=== PATIENT | female | born 1980 | race African-American/Black ===

== ENCOUNTER 2022-08-25 13:14 | Emergency (ER) | payer BC ==
[~2022-08-25] VITALS: Ht 170.2 cm; Wt 78.9 kg
[2022-08-25 14:01] VITALS: BP_SYST 120
[2022-08-25] MEDS ORDERED: SODIUM CL 3% FOR INHALATION 15 ML VIAL.NEB INH ONE (16:45)
[2022-08-25] MEDS ORDERED: ACETAMINOPHEN 650 MG/20.3 ML UDC PO ONE (16:45)
[2022-08-25] MEDS ORDERED: TYLL650 PO (17:11)
[2022-08-25] MEDS ORDERED: GUAI100S14 PO (17:11)
[2022-08-25 17:41] VITALS: BP_SYST 120
== END 2022-08-25 17:41 | disposition home or self-care (01) ==
LOC: SED 13:14
DX: J02.9 Acute pharyngitis, unspecified (principal); I10 Essential (primary) hypertension; Z91.041 Radiographic dye allergy status; Z88.8 Allergy status to other drugs, medicaments and biological substances; Z79.899 Other long term (current) drug therapy
CPT/HCPCS: 99283; 94640; 94760; J7131

== ENCOUNTER 2022-08-29 11:09 | Emergency (ER) | payer BC ==
[~2022-08-29] VITALS: Ht 170.2 cm; Wt 78.9 kg
[~2022-08-29 11:09] MED LIST: GUAI100S14 PO; TYLL650 PO
[2022-08-29 11:46] VITALS: BP_SYST 128
[2022-08-29 12:32] LABS: CALCIUM 8.8 mg/dL (8.4-11.0); CREATININE 0.83 mg/dL (0.55-1.30)
[2022-08-29 12:33] LABS: BASOPHILS % (AUTO) 0.4 % (0.0-2.0); EOSINOPHILS # (AUTO) 0.1 K/uL (0.0-0.4); EOSINOPHILS % (AUTO) 1.6 % (0.0-4.0); HEMATOCRIT 33.8 % (36-48); HEMOGLOBIN 11.1 g/dL (12.0-16.0); LYMPHOCYTES # (AUTO) 1.3 K/uL (1.0-5.5); LYMPHOCYTES % (AUTO) 33.7 % (20.5-51.5); MEAN CORPUSCULAR HEMOGLOBIN 26 pg (27-31); MEAN CORPUSCULAR HGB CONC 33 % (32-36); MEAN CORPUSCULAR VOLUME 79 fL (79.0-98.0); MONOCYTES # (AUTO) 0.3 K/uL (0.0-1.0); MONOCYTES % (AUTO) 6.7 % (1.7-9.3); NEUTROPHILS # (AUTO) 2.2 K/uL (1.8-7.7); NEUTROPHILS % (AUTO) 57.6 % (40.0-70.0); PLATELET COUNT (AUTO) 248 K/uL (130-430); RED BLOOD CELL COUNT(AUTO) 4.27 MIL/uL (4.2-6.2); RED CELL DISTRIBUTION WIDTH 17.4 % (9.0-15.0); WHITE BLOOD COUNT (AUTO) 3.8 K/uL (4.8-10.8)
[2022-08-29 12:46] LABS: ALBUMIN 4.1 g/dL (3.4-4.8); FREE T4 (FREE THYROXINE) 0.8 ng/dL (0.6-1.6); THYROID STIMULATING HORMONE 3.9 uIu/mL (0.34-4.82); TOTAL BILIRUBIN 0.5 mg/dL (0.0-1.0)
[2022-08-29] MEDS ORDERED: NACL 0.9% 1,000 ML IV ONE (13:30)
[2022-08-29] MEDS ORDERED: ONDA-8 TL (13:55)
[2022-08-29 17:27] VITALS: BP_SYST 111
[2022-08-30] MEDS ORDERED: ACET-2634 PO (05:50)
[2022-08-30] MEDS ORDERED: ONDA-8 TL (05:50)
== END 2022-08-29 17:27 | disposition home or self-care (01) ==
LOC: SED 11:09
DX: E86.0 Dehydration (principal); R42 Dizziness and giddiness; F41.9 Anxiety disorder, unspecified; D64.9 Anemia, unspecified; Z79.899 Other long term (current) drug therapy; I10 Essential (primary) hypertension; Z91.041 Radiographic dye allergy status; Z88.8 Allergy status to other drugs, medicaments and biological substances
CPT/HCPCS: 99284; 96360; 80053; 84439; 84443; 85025; 36415; 93005; J7030

== ENCOUNTER 2022-08-30 03:04 | Emergency (ER) | payer BC ==
[~2022-08-30] VITALS: Ht 170.2 cm; Wt 78.9 kg
[~2022-08-30 03:04] MED LIST changes: +ONDA-8 TL
[2022-08-30 03:12] VITALS: BP_SYST 150
[2022-08-30 05:24] LABS: BASOPHILS % (AUTO) 0.7 % (0.0-2.0); EOSINOPHILS # (AUTO) 0.1 K/uL (0.0-0.4); EOSINOPHILS % (AUTO) 1.5 % (0.0-4.0); HEMATOCRIT 33.8 % (36-48); HEMOGLOBIN 10.9 g/dL (12.0-16.0); LYMPHOCYTES # (AUTO) 1.7 K/uL (1.0-5.5); LYMPHOCYTES % (AUTO) 27.2 % (20.5-51.5); MEAN CORPUSCULAR HEMOGLOBIN 26 pg (27-31); MEAN CORPUSCULAR HGB CONC 32 % (32-36); MEAN CORPUSCULAR VOLUME 79 fL (79.0-98.0); MONOCYTES # (AUTO) 0.3 K/uL (0.0-1.0); MONOCYTES % (AUTO) 5.6 % (1.7-9.3); PLATELET COUNT (AUTO) 232 K/uL (130-430); RED BLOOD CELL COUNT(AUTO) 4.26 MIL/uL (4.2-6.2); RED CELL DISTRIBUTION WIDTH 17.6 % (9.0-15.0); WHITE BLOOD COUNT (AUTO) 6.2 K/uL (4.8-10.8)
[2022-08-30 05:32] LABS: ANION GAP 8 (5-15); CALCIUM 8.7 mg/dL (8.4-11.0); CHLORIDE 102 mmol/L (98-107); CREATININE 0.71 mg/dL (0.55-1.30); GFR AFRICAN AMERICAN 116 mL/min (>90); GLUCOSE 101 mg/dL (70-99); UREA NITROGEN, BLOOD 9 mg/dL (8-21)
[2022-08-30 05:39] LABS: ALANINE AMINOTRANSFERASE 19 U/L (12-78); ALBUMIN 4.2 g/dL (3.4-4.8); ASPARTATE AMINOTRANSFERASE 13 U/L (10-37); PHOSPHORUS 3.8 mg/dL (2.7-4.5); TOTAL BILIRUBIN 0.4 mg/dL (0.0-1.0)
[2022-08-30] MEDS ORDERED: ACET-2634 PO (05:50)
[2022-08-30] MEDS ORDERED: ONDA-8 TL (05:50)
[2022-08-30] MEDS ORDERED: ONDANSETRON 4 MG ODT TAB PO ONE (06:00)
[2022-08-30] MEDS ORDERED: ACETAMINOPHEN 325 MG TABLET PO ONE (06:00)
[2022-08-30 06:22] VITALS: BP_SYST 154
== END 2022-08-30 06:17 | disposition home or self-care (01) ==
LOC: SED 03:04
DX: R07.89 Other chest pain (principal); R00.2 Palpitations; R42 Dizziness and giddiness; I10 Essential (primary) hypertension; Z88.8 Allergy status to other drugs, medicaments and biological substances; Z91.041 Radiographic dye allergy status; Z79.899 Other long term (current) drug therapy
CPT/HCPCS: 99284; 80053; 83735; 84100; 85025; 84484; 36415; 93005; Q0162

== ENCOUNTER 2023-06-30 23:22 | Emergency (ER) | payer BC ==
[~2023-06-30] VITALS: Ht 170.2 cm; Wt 83.9 kg
[~2023-06-30 23:22] MED LIST changes: +ACET-2634 PO; +AMLO5TAB92 PO; +APIX5TAB PO
[2023-06-30 23:30] VITALS: BP_SYST 158; PULSE 75; RESP 20; TEMP 98.3; O2SAT 100
[2023-07-01] MEDS: MORPHINE 4 MG INJ. 4 MG/ML VIAL IM ONE (00:13)
[2023-07-01] MEDS: KETOROLAC TROMETHAMINE 60 MG/2 ML VIAL IM ONE (00:14)
[2023-07-01] MEDS: HYDROmorphone 1 MG/ML INJ. CARTRIDGE IVP ONE (02:51)
[2023-07-01 02:52] LABS: BASOPHILS # (AUTO) 0.1 K/uL (0.0-0.2); BASOPHILS % (AUTO) 2.1 % (0.0-2.0); EOSINOPHILS # (AUTO) 0.1 K/uL (0.0-0.4); EOSINOPHILS % (AUTO) 2.5 % (0.0-4.0); HEMOGLOBIN 11.8 g/dL (12.0-16.0); LYMPHOCYTES # (AUTO) 1.6 K/uL (1.0-5.5); LYMPHOCYTES % (AUTO) 27.4 % (20.5-51.5); MEAN CORPUSCULAR HEMOGLOBIN 27 pg (27-31); MEAN CORPUSCULAR HGB CONC 33 % (32-36); MEAN CORPUSCULAR VOLUME 82 fL (79.0-98.0); MONOCYTES # (AUTO) 0.4 K/uL (0.0-1.0); MONOCYTES % (AUTO) 6.8 % (1.7-9.3); NEUTROPHILS # (AUTO) 3.6 K/uL (1.8-7.7); NEUTROPHILS % (AUTO) 61.2 % (40.0-70.0); PLATELET COUNT (AUTO) 216 K/uL (130-430); RED CELL DISTRIBUTION WIDTH 16.1 % (9.0-15.0); WHITE BLOOD COUNT (AUTO) 5.9 K/uL (4.8-10.8)
[2023-07-01 03:11] LABS: INR 0.9 (0.8-1.2); PROTHROMBIN TIME 9.6 SECS (9.5-12.5)
[2023-07-01 03:18] LABS: ANION GAP 11 (5-15); CARBON DIOXIDE 26 mmol/L (23-29); CHLORIDE 104 mmol/L (98-107); CREATININE 0.83 mg/dL (0.55-1.30); GFR AFRICAN AMERICAN 96 mL/min (>90); GLUCOSE 98 mg/dL (74-106); POTASSIUM 4.1 mmol/L (3.5-5.1); SODIUM SERUM 141 mmol/L (136-145); UREA NITROGEN, BLOOD 11 mg/dL (8-21)
[2023-07-01 03:23] LABS: GFR NON AFRICAN-AMERICAN 79 mL/min (>90)
[2023-07-01] MEDS: MORPHINE 4 MG INJ. 4 MG/ML VIAL IVP ONE (03:39)
[2023-07-01] MEDS ORDERED: NAPR-1172 PO (03:59)
[2023-07-01 04:02] VITALS: BP_SYST 113; PULSE 106; RESP 16; TEMP 98; O2SAT 98
== END 2023-07-01 04:01 | disposition home or self-care (01) ==
LOC: SED 23:22
DX: M54.30 Sciatica, unspecified side (principal); M79.651 Pain in right thigh; I10 Essential (primary) hypertension; I48.91 Unspecified atrial fibrillation; Z86.711 Personal history of pulmonary embolism; Z91.040 Latex allergy status; Z88.1 Allergy status to other antibiotic agents; Z88.8 Allergy status to other drugs, medicaments and biological substances
CPT/HCPCS: 99285; 80048; 85025; 85379; 85610; 84484; 36415; 96374; 93971; 96372; J1885; J1170; J2270

== ENCOUNTER 2023-08-06 03:41 | Emergency (ER) | payer BC ==
[~2023-08-06] VITALS: Ht 170.2 cm; Wt 81.6 kg
[~2023-08-06 03:41] MED LIST changes: +NAPR-1172 PO
[2023-08-06 03:52] VITALS: BP_SYST 171; PULSE 79; RESP 16; TEMP 97.9; O2SAT 98
[2023-08-06] MEDS ORDERED: HYDR-3917 PO (04:55)
[2023-08-06] MEDS: HYDROcodone/ACETAMIN 5-325 MG TAB (NORCO/ VICODIN) PO ONE (05:20)
== END 2023-08-06 05:35 | disposition home or self-care (01) ==
LOC: SED 03:41
DX: M54.16 Radiculopathy, lumbar region (principal); M79.622 Pain in left upper arm; I10 Essential (primary) hypertension; Z88.8 Allergy status to other drugs, medicaments and biological substances; Z91.041 Radiographic dye allergy status
CPT/HCPCS: 72100; 73060; 99284

== ENCOUNTER 2023-08-16 01:31 | Emergency (ER) | payer BC ==
[~2023-08-16] VITALS: Ht 170.2 cm; Wt 81.6 kg
[~2023-08-16 01:31] MED LIST changes: +HYDR-3917 PO
[2023-08-16 01:41] VITALS: BP_SYST 160; PULSE 76; RESP 18; TEMP 97.4; O2SAT 99
[2023-08-16] MEDS ORDERED: CEPH-548 PO (02:15)
[2023-08-16 02:46] VITALS: BP_SYST 160; PULSE 76; RESP 18; TEMP 97.4; O2SAT 99
== END 2023-08-16 02:47 | disposition home or self-care (01) ==
LOC: SED 01:31
DX: L73.8 Other specified follicular disorders (principal); R22.42 Localized swelling, mass and lump, left lower limb; I10 Essential (primary) hypertension; Z88.8 Allergy status to other drugs, medicaments and biological substances; Z91.041 Radiographic dye allergy status
CPT/HCPCS: 99283

== ENCOUNTER 2023-09-11 01:47 | Emergency (ER) | payer BC ==
[~2023-09-11] VITALS: Ht 170.2 cm; Wt 83.5 kg
[~2023-09-11 01:47] MED LIST changes: +CEPH-548 PO
[2023-09-11 01:50] VITALS: BP_SYST 165; PULSE 70; RESP 20; TEMP 98; O2SAT 98
[2023-09-11 03:31] LABS: BILIRUBIN,URINE NEGATIVE (NEGATIVE); CLARITY/URINE CLEAR (CLEAR); COLOR,URINE YELLOW (YELLOW); GLUCOSE,URINE NEGATIVE (NEGATIVE); KETONES,URINE NEGATIVE (NEGATIVE); LEUKOCYTE ESTERASE ,URINE NEGATIVE (NEGATIVE); NITRITE, URINE NEGATIVE (NEGATIVE); PH,URINE 6.5 (5.0-8.0); PROTEIN URINE NEGATIVE (NEGATIVE); UROBILINOGEN,URINE 0.2 (0.2-1.0)
[2023-09-11 03:33] LABS: BLOOD, URINE TRACE (NEGATIVE)
[2023-09-11 03:48] LABS: BACTERIA,URINE None Seen /HPF (None Seen); WBC,URINE 0-3 /HPF (0-3)
[2023-09-11 04:12] LABS: BASOPHILS % (AUTO) 0.5 % (0.0-2.0); EOSINOPHILS # (AUTO) 0.2 K/uL (0.0-0.4); EOSINOPHILS % (AUTO) 3.4 % (0.0-4.0); HEMATOCRIT 32.6 % (36-48); HEMOGLOBIN 10.7 g/dL (12.0-16.0); LYMPHOCYTES # (AUTO) 1.5 K/uL (1.0-5.5); LYMPHOCYTES % (AUTO) 29.6 % (20.5-51.5); MEAN CORPUSCULAR HEMOGLOBIN 26 pg (27-31); MEAN CORPUSCULAR HGB CONC 33 % (32-36); MEAN CORPUSCULAR VOLUME 79 fL (79.0-98.0); MONOCYTES # (AUTO) 0.4 K/uL (0.0-1.0); MONOCYTES % (AUTO) 7.8 % (1.7-9.3); NEUTROPHILS % (AUTO) 58.7 % (40.0-70.0); PLATELET COUNT (AUTO) 226 K/uL (130-430); RED BLOOD CELL COUNT(AUTO) 4.11 MIL/uL (4.2-6.2); RED CELL DISTRIBUTION WIDTH 16.1 % (9.0-15.0)
[2023-09-11] MEDS: NACL 0.9% 1,000 ML IV ONE (04:13)
[2023-09-11] MEDS: KETOROLAC TROMETHAMINE 30 MG VIAL IVP ONE (04:14)
[2023-09-11] MEDS: MORPHINE 4 MG INJ. 4 MG/ML VIAL IVP ONE (04:15)
[2023-09-11 04:32] LABS: ALBUMIN 3.9 g/dL (3.4-4.8); BILIRUBIN,DIRECT 0.1 mg/dL (0.0-0.3); CALCIUM 8.7 mg/dL (8.4-11.0); CREATININE 0.72 mg/dL (0.55-1.30); POTASSIUM 3.9 mmol/L (3.5-5.1); TOTAL BILIRUBIN 0.3 mg/dL (0.0-1.0); TOTAL PROTEIN, SERUM 7.7 g/dL (6.4-8.3)
[2023-09-11] MEDS ORDERED: ONDANSETRON 4 MG ODT TAB ONE (06:00)
[2023-09-11 06:05] VITALS: BP_SYST 140; PULSE 60; RESP 15; TEMP 98.2; O2SAT 98
[2023-09-11] MEDS: ONDANSETRON 4 MG ODT TAB PO ONE (06:10)
[2023-09-11] MEDS ORDERED: ONDA-8 TL (06:11)
[2023-09-11] MEDS ORDERED: NITR-85 PO (06:11)
== END 2023-09-11 06:05 | disposition home or self-care (01) ==
LOC: SED 01:47
DX: N39.0 Urinary tract infection, site not specified (principal); R10.32 Left lower quadrant pain; I10 Essential (primary) hypertension; I48.91 Unspecified atrial fibrillation; Z86.711 Personal history of pulmonary embolism; Z90.710 Acquired absence of both cervix and uterus; Z88.1 Allergy status to other antibiotic agents; Z91.041 Radiographic dye allergy status; Z88.8 Allergy status to other drugs, medicaments and biological substances; Z79.899 Other long term (current) drug therapy; Z79.2 Long term (current) use of antibiotics
CPT/HCPCS: 99285; 74176; 96374; 96361; 96375; 80076; 80048; 81001; 85025; 36415; 81025; Q0162; J1885; J2270; J7030; 81000; 81015

== ENCOUNTER 2023-09-26 20:06 | Emergency (ER) | payer BC ==
[~2023-09-26] VITALS: Ht 170.2 cm; Wt 83.5 kg
[~2023-09-26 20:06] MED LIST changes: +NITR-85 PO
[2023-09-26 20:23] VITALS: BP_SYST 169; PULSE 88; RESP 16; TEMP 98.5; O2SAT 100
[2023-09-26 21:30] LABS: BILIRUBIN,URINE NEGATIVE (NEGATIVE); BLOOD, URINE NEGATIVE (NEGATIVE); CLARITY/URINE CLEAR (CLEAR); COLOR,URINE YELLOW (YELLOW); GLUCOSE,URINE NEGATIVE (NEGATIVE); KETONES,URINE NEGATIVE (NEGATIVE); LEUKOCYTE ESTERASE ,URINE NEGATIVE (NEGATIVE); NITRITE, URINE NEGATIVE (NEGATIVE); PH,URINE 6.5 (5.0-8.0); PROTEIN URINE NEGATIVE (NEGATIVE); UROBILINOGEN,URINE 0.2 (0.2-1.0)
[2023-09-26 21:47] LABS: BASOPHILS % (AUTO) 0.4 % (0.0-2.0); EOSINOPHILS # (AUTO) 0.1 K/uL (0.0-0.4); EOSINOPHILS % (AUTO) 2.2 % (0.0-4.0); HEMATOCRIT 33.1 % (36-48); HEMOGLOBIN 10.9 g/dL (12.0-16.0); LYMPHOCYTES # (AUTO) 1.7 K/uL (1.0-5.5); MEAN CORPUSCULAR HEMOGLOBIN 26 pg (27-31); MEAN CORPUSCULAR HGB CONC 33 % (32-36); MEAN CORPUSCULAR VOLUME 80 fL (79.0-98.0); MONOCYTES # (AUTO) 0.4 K/uL (0.0-1.0); MONOCYTES % (AUTO) 6.2 % (1.7-9.3); NEUTROPHILS # (AUTO) 3.5 K/uL (1.8-7.7); NEUTROPHILS % (AUTO) 61.2 % (40.0-70.0); PLATELET COUNT (AUTO) 238 K/uL (130-430); RED BLOOD CELL COUNT(AUTO) 4.14 MIL/uL (4.2-6.2); RED CELL DISTRIBUTION WIDTH 16.5 % (9.0-15.0); WHITE BLOOD COUNT (AUTO) 5.7 K/uL (4.8-10.8)
[2023-09-26 22:18] LABS: ALANINE AMINOTRANSFERASE 19 U/L (12-78); ANION GAP 7 (5-15); ASPARTATE AMINOTRANSFERASE 17 U/L (10-37); BILIRUBIN,DIRECT 0.1 mg/dL (0.0-0.3); CALCIUM 9.3 mg/dL (8.4-11.0); CARBON DIOXIDE 27 mmol/L (23-29); CHLORIDE 105 mmol/L (98-107); CREATININE 0.73 mg/dL (0.55-1.30); GFR AFRICAN AMERICAN 111 mL/min (>90); GFR NON AFRICAN-AMERICAN 92 mL/min (>90); GLUCOSE 98 mg/dL (74-106); LIPASE 31 U/L (16-77); POTASSIUM 3.7 mmol/L (3.5-5.1); SODIUM SERUM 139 mmol/L (136-145); TOTAL BILIRUBIN 0.3 mg/dL (0.0-1.0); TOTAL PROTEIN, SERUM 7.9 g/dL (6.4-8.3); UREA NITROGEN, BLOOD 8 mg/dL (8-21)
[2023-09-27] MEDS: HYDROcodone/ACETAMIN 5-325 MG TAB (NORCO/ VICODIN) PO ONE (00:30)
[2023-09-27] MEDS: ONDANSETRON 4 MG ODT TAB PO ONE (03:45)
[2023-09-27 04:39] VITALS: BP_SYST 154; PULSE 62; RESP 20; TEMP 98.5; O2SAT 99
== END 2023-09-27 04:39 | disposition home or self-care (01) ==
LOC: SED 20:06
DX: R10.9 Unspecified abdominal pain (principal); R07.9 Chest pain, unspecified; I10 Essential (primary) hypertension; I48.91 Unspecified atrial fibrillation; Z88.8 Allergy status to other drugs, medicaments and biological substances; Z91.041 Radiographic dye allergy status; Z86.73 Personal history of transient ischemic attack (TIA), and cerebral infarction without residual deficits; Z79.899 Other long term (current) drug therapy
CPT/HCPCS: 99285; 71045; 80076; 80048; 81001; 83880; 83690; 85025; 84484; 36415; 93005; 81025; 81003; 74176; Q0162

== ENCOUNTER 2023-12-13 21:17 | Emergency (ER) | payer BC ==
[~2023-12-13] VITALS: Ht 170.2 cm; Wt 88.9 kg
[2023-12-13 21:50] VITALS: BP_SYST 148; PULSE 74; RESP 18; TEMP 97.8; O2SAT 98
[2023-12-13 22:28] LABS: BILIRUBIN,URINE NEGATIVE (NEGATIVE); BLOOD, URINE NEGATIVE (NEGATIVE); CLARITY/URINE CLEAR (CLEAR); COLOR,URINE YELLOW (YELLOW); GLUCOSE,URINE NEGATIVE (NEGATIVE); KETONES,URINE NEGATIVE (NEGATIVE); LEUKOCYTE ESTERASE ,URINE TRACE (NEGATIVE); NITRITE, URINE NEGATIVE (NEGATIVE); PH,URINE 7.5 (5.0-8.0); PROTEIN URINE NEGATIVE (NEGATIVE); UROBILINOGEN,URINE 0.2 (0.2-1.0)
[2023-12-13 23:00] LABS: BACTERIA,URINE FEW /HPF (None Seen); MUCUS,URINE 2+ /LPF (None Seen)
[2023-12-14] MEDS ORDERED: KETOROLAC TROMETHAMINE 60 MG/2 ML VIAL IM ONE
[2023-12-14 00:30] LABS: BASOPHILS % (AUTO) 0.7 % (0.0-2.0); EOSINOPHILS # (AUTO) 0.2 K/uL (0.0-0.4); EOSINOPHILS % (AUTO) 3.4 % (0.0-4.0); HEMATOCRIT 36.6 % (36-48); HEMOGLOBIN 11.9 g/dL (12.0-16.0); LYMPHOCYTES # (AUTO) 1.7 K/uL (1.0-5.5); MEAN CORPUSCULAR HEMOGLOBIN 27 pg (27-31); MEAN CORPUSCULAR HGB CONC 33 % (32-36); MEAN CORPUSCULAR VOLUME 81 fL (79.0-98.0); MONOCYTES # (AUTO) 0.4 K/uL (0.0-1.0); MONOCYTES % (AUTO) 5.9 % (1.7-9.3); NEUTROPHILS # (AUTO) 3.8 K/uL (1.8-7.7); PLATELET COUNT (AUTO) 266 K/uL (130-430); RED BLOOD CELL COUNT(AUTO) 4.51 MIL/uL (4.2-6.2); RED CELL DISTRIBUTION WIDTH 17.9 % (9.0-15.0); WHITE BLOOD COUNT (AUTO) 6.2 K/uL (4.8-10.8)
[2023-12-14] MEDS: MORPHINE 4 MG INJ. 4 MG/ML VIAL IM ONE (00:31)
[2023-12-14 00:36] LABS: CALCIUM 9.5 mg/dL (8.4-11.0); CREATININE 0.79 mg/dL (0.55-1.30); POTASSIUM 3.4 mmol/L (3.5-5.1)
[2023-12-14] MEDS ORDERED: CIPR500T5 PO (02:08)
[2023-12-14] MEDS ORDERED: HYDR-3927 PO (02:08)
[2023-12-14] MEDS ORDERED: NITR-85 PO (02:19)
[2023-12-14 02:50] VITALS: BP_SYST 136; PULSE 89; RESP 18; TEMP 97.8; O2SAT 98
== END 2023-12-14 02:15 | disposition home or self-care (01) ==
LOC: SED 21:17
DX: N39.0 Urinary tract infection, site not specified (principal); R10.2 Pelvic and perineal pain; I48.91 Unspecified atrial fibrillation; I10 Essential (primary) hypertension; Z86.711 Personal history of pulmonary embolism; Z88.6 Allergy status to analgesic agent; Z91.041 Radiographic dye allergy status; Z88.8 Allergy status to other drugs, medicaments and biological substances; Z79.899 Other long term (current) drug therapy; Z79.2 Long term (current) use of antibiotics; Z79.01 Long term (current) use of anticoagulants
CPT/HCPCS: 99285; 80048; 81001; 85025; 87086; 36415; 74176; 96372; J2270; 81000; 81015; J1885